=== PATIENT | female | born 1985 | race American Indian/Alaskan Native ===

== ENCOUNTER 2020-08-08 15:47 | Emergency (ER) | payer OTHER ==
[2020-08-08 16:23] VITALS: BP 110/56
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
== END 2020-08-08 19:15 | disposition home or self-care (01) ==
LOC: ED 15:47
DX: M54.2 Cervicalgia (principal); M54.6 Pain in thoracic spine; M25.562 Pain in left knee; Z79.899 Other long term (current) drug therapy; V87.7XXA Person injured in collision between other specified motor vehicles (traffic), initial encounter; Y93.89 Activity, other specified; Y92.488 Other paved roadways as the place of occurrence of the external cause; Y99.8 Other external cause status
CPT/HCPCS: 72040; 72070; 72072; 99283